=== PATIENT | male | born 1995 | race Caucasian/White ===

== ENCOUNTER 2017-12-11 18:25 | Emergency (ER) | payer BC ==
[~2017-12-11] VITALS: Ht 182.9 cm; Wt 80.7 kg
[2017-12-11 18:44] VITALS: BP 126/71; PULSE 78; RESP 18; TEMP 98.6; O2SAT 97
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
== END 2017-12-11 19:21 | disposition home or self-care (01) ==
LOC: PHEFT 18:25
DX: S01.81XA Laceration without foreign body of other part of head, initial encounter (principal); W22.8XXA Striking against or struck by other objects, initial encounter; R51 Headache; Z23 Encounter for immunization
CPT/HCPCS: 12011